=== PATIENT | male | born 1955 | race Caucasian/White ===

== ENCOUNTER 2018-09-11 09:17 | Emergency (ER) | payer OTHER ==
[~2018-09-11] VITALS: Ht 180.3 cm; Wt 109.0 kg
[2018-09-11] MEDS ORDERED: PROVENTIL108 MCG/AC IN (11:13)
[2018-09-11] MEDS ORDERED: ERYTHROMYCIN O3.5 GM OU (11:13)
[2018-09-11] MEDS ORDERED: ZITHROMAX250 MG PO (11:13)
[2018-09-11 11:18] VITALS: BP 129/74
== END 2018-09-11 11:18 | disposition home or self-care (01) | DRG 153 ==
LOC: ED 09:17
DX: J06.9 Acute upper respiratory infection, unspecified (principal); H10.9 Unspecified conjunctivitis